=== PATIENT | female | born 1965 | race Caucasian/White ===

== ENCOUNTER → 2023-11-15 08:59 | Outpatient (REF) | payer OTHER, SELFPAY | LOC: HWRAD 08:59 | PROVIDERS: ATTENDING PHYSICIAN Internal Medicine Gastroenterology; FAMILY PHYSICIAN Internal Medicine | DX: K59.09 Other constipation (principal) | CPT/HCPCS: 76700 ==

== ENCOUNTER → 2024-01-02 11:00 | Outpatient (REF) | payer OTHER, SELFPAY ==
[2024-01-02 12:55] LABS: Blood Urea Nitrogen 14 mg/dl (7-17); Calcium 9.4 mg/dl (8.4-10.2); Carbon Dioxide 24 mmol/L (22-30); Chloride 105 mmol/L (98-107); Glucose 88 mg/dl (70-99); Potassium 4.4 mmol/L (3.5-5.1); Sodium 138 mmol/L (135-145); eGFR > 60.00
== END ==
LOC: REG 11:00
PROVIDERS: ATTENDING PHYSICIAN Internal Medicine Gastroenterology
DX: R10.13 Epigastric pain (principal)
CPT/HCPCS: 36415; 80048

== ENCOUNTER → 2024-01-03 07:52 | Outpatient (REF) | payer OTHER, SELFPAY | LOC: RAD 07:52 | PROVIDERS: ATTENDING PHYSICIAN Internal Medicine Gastroenterology | DX: R10.13 Epigastric pain (principal); K86.89 Other specified diseases of pancreas | CPT/HCPCS: 74177; Q9967 ==

== ENCOUNTER → 2024-01-24 10:56 | Outpatient (REF) | payer OTHER, SELFPAY | LOC: RCS 10:56 | PROVIDERS: ATTENDING PHYSICIAN Internal Medicine | DX: R06.02 Shortness of breath (principal); R00.2 Palpitations | CPT/HCPCS: 93225; 93226 ==

== ENCOUNTER → 2024-02-08 14:54 | Outpatient (REF) | payer OTHER, SELFPAY | LOC: WDC 14:54 | PROVIDERS: ATTENDING PHYSICIAN Obstetrics & Gynecology Gynecology; FAMILY PHYSICIAN Internal Medicine | DX: Z12.31 Encounter for screening mammogram for malignant neoplasm of breast (principal) | CPT/HCPCS: 77063; 77067 ==

== ENCOUNTER → 2024-02-11 06:40 | Day surgery (SDC) | payer OTHER, SELFPAY | LOC: GI 06:40 | PROVIDERS: ATTENDING PHYSICIAN Internal Medicine Gastroenterology | DX: R10.11 Right upper quadrant pain (principal); K44.9 Diaphragmatic hernia without obstruction or gangrene; K31.89 Other diseases of stomach and duodenum; K29.50 Unspecified chronic gastritis without bleeding | CPT/HCPCS: 43239; 88305; 88342 ==

== ENCOUNTER → 2024-02-20 12:46 | Outpatient (REF) | payer OTHER, SELFPAY | LOC: HWRAD 12:46 | PROVIDERS: ATTENDING PHYSICIAN Obstetrics & Gynecology Gynecology; FAMILY PHYSICIAN Internal Medicine | DX: R93.89 Abnormal findings on diagnostic imaging of other specified body structures (principal) | CPT/HCPCS: 76830; 76856 ==

== ENCOUNTER → 2024-03-06 07:36 | Outpatient (REF) | payer OTHER, SELFPAY | LOC: RAD 07:36 | PROVIDERS: ATTENDING PHYSICIAN Internal Medicine Gastroenterology; FAMILY PHYSICIAN Internal Medicine | DX: R10.11 Right upper quadrant pain (principal) | CPT/HCPCS: 78226; A9537 ==

== ENCOUNTER → 2024-03-17 14:58 | Outpatient (REF) | payer OTHER, SELFPAY | LOC: RCS 14:58 | PROVIDERS: ATTENDING PHYSICIAN Internal Medicine Cardiovascular Disease; FAMILY PHYSICIAN Internal Medicine | DX: I49.3 Ventricular premature depolarization (principal) | CPT/HCPCS: 93017 ==

== ENCOUNTER → 2024-04-03 13:56 | Outpatient (REF) | payer OTHER, SELFPAY | LOC: HWRCS 13:56 | PROVIDERS: ATTENDING PHYSICIAN Internal Medicine Cardiovascular Disease; FAMILY PHYSICIAN Internal Medicine | DX: I49.3 Ventricular premature depolarization (principal) | CPT/HCPCS: 93306 ==

== ENCOUNTER 2024-10-02 06:05 | Day surgery (SDC) | payer OTHER, SELFPAY ==
[2024-10-02] VITALS (8 sets, daily range): BP systolic 108–145; BP diastolic 56–71; BMI 20.4
[2024-10-02] MEDS: TYLENOL 1000 MG PO (07:15)
[2024-10-02] MEDS: NORMOSOL-R/PLASMALYTE-A 1000 IV (07:16)
--- NOTE | 2024-10-02 07:19 | W.SUR.PREOP ---
Pre-Operative Surgical Note
-
I have examined this patient prior to the performance of the scheduled procedure.
The patient's condition is unchanged from the time of the current History and
Physical and the patient is able to undergo the scheduled procedure.
--- NOTE | 2024-10-02 07:19 | HP.FOC2 ---
Focused History & Physical
Chief Complaint
HPI:
Chief Complaint:
Right upper quadrant pain
HPI / Indication for Planned Procedure:
This is a 58-year-old female who had the pleasure of seeing in the office for right upper quadrant pain that radiates to her back CT scan imaging demonstrated stone in the neck of the gallbladder. Interestingly her pain actually improved with meals
and has continued to do so but her pain has been unrelenting and having exhausted all the resources we are moving forward with laparoscopic cholecystectomy.
Relevant Past Medical History: Negative
Relevant Social History: Negative
Relevant Family History: Negative
Relevant Past Surgical History: Negative
Review of Systems
Review of Pertinent Systems: All Systems Negative
Medication
See Medication form for detailed medications: Yes
Medication List (including Herbals & OTC):
Berberine Capsule 1 cap PO DAILY 09/24/24
Magnesium Complex 1 cap PO TID 09/24/24
Lyme 3 1 cap PO BID 09/24/24
Sbo Probiotic 2 cap PO DAILY 09/24/24
Vitamin D3 250 mcg PO DAILY 09/24/24
cyanocobalamin (vitamin B-12) 5,000 mcg sublingual tablet (Vitamin B-12) 5,000 mcg sublingual DAILY 09/24/24
cyclosporine 0.09 % eye drops in a dropperette (Cequa) 1 drp ophthalmic (eye) Q12H 09/24/24
digestive enzymes 1 cap PO .TID WITH MEALS 09/24/24
levothyroxine 50 mcg tablet (Synthroid) 150 mcg PO DAILY 09/24/24
liothyronine 5 mcg tablet 5 mcg PO DAILY 09/24/24
metoprolol succinate 25 mg tablet,extended release 24 hr 25 mg PO QPM 09/24/24
minoxidil 2.5 mg tablet 2.5 mg PO DAILY 09/24/24
multivitamin 1 tab PO DAILY 09/24/24
naltrexone 4.5 mg capsule 4.5 mg PO DAILY 09/24/24
progesterone 200 mg PO HS 09/24/24
vitamin D3-vitamin K2 1 cap PO DAILY 09/24/24
vitamin E 1 cap PO DAILY 09/24/24
Bioidentical Hormone Replaceme 1 unit SC Q6M 09/25/24
selenium 2 tab PO DAILY 09/25/24
Medications Reviewed: Yes
Allergies and Reactions
Patient has Allergies: No
Noted Allergies and Reactions:
Allergy/AdvReac Type Severity Reaction Status Date / Time
red dye Allergy palpatation Verified 10/02/24 06:52
s
epinephrine AdvReac tachycardia Verified 10/02/24 06:52
and anxiety
Pertinent Physical Exam
All Other Systems: Negative
Head/Neck: Normal
Diagnosis / Assessment
This is a 59-year-old female with now near constant right upper quadrant pain and stone in the neck of the gallbladder concerning for biliary colic versus chronic cholecystitis
Plan / Procedure
Laparoscopic cholecystectomy with cholangiogram
Anesthesia/Sedation to be done by Anesthesia Provider: Yes
--- NOTE | 2024-10-02 08:56 | W.IMMPOSTOP ---
Surgical Immed Post Op Note
-
Primary Surgeon: Mannie Randhawa MD
Assisting Surgeon: None
Pre-op Diagnosis: Biliary colic
Post-op Diagnosis: Same
Procedure Performed: Laparoscopic cholecystectomy with cholangiogram
Anesthesia Type: General
Specimen / Cultures: Gallbladder and contents
Estimated Blood Loss: 3 cc
Complications: None
Operative Findings: Due to her prior umbilical hernia repair which was unclear if it was done with mesh or not did an off midline 5 mm Optiview entry after a left upper quadrant Veress. Fairly normal-appearing gallbladder though somewhat distended.
Critical view of safety obtained prior to a cholangiogram which demonstrated no distal filling defects, and normal biliary anatomy.
--- NOTE | 2024-10-02 08:58 | OR.RPT ---
Operative Report
Operative Report
Patient Name: Marisol Lee
: 1965
Date of Operation: 10/02/2024
Preoperative Diagnosis: Symptomatic Cholelithiasis
Postoperative Diagnosis: Same
Procedure(s):
Laparoscopic Cholecystectomy with Cholangiogram
Surgeon(s):
Dr. Randhawa
Physically Impaired Teacher(s):
CHASE Arreola
Anesthesia: General
Estimated Blood Loss: 3 cc
Urine Output: None
Drains/Lines/Implants: None
Specimens:
1. Gallbladder and contents
HPI/Surgical Indications:
This is a 59year old female who presents with abdominal pain. Exam, labs and imaging are consistent with symptomatic cholelithiasis. Risks/Benefits/Alternatives were discussed at length, and the patient agreed to proceed with surgery.
Operative Findings: Due to her prior umbilical hernia repair which was unclear if it was done with mesh or not did an off midline 5 mm Optiview entry after a left upper quadrant Veress. Fairly normal-appearing gallbladder though somewhat distended.
Critical view of safety obtained prior to a cholangiogram which demonstrated no distal filling defects, and normal biliary anatomy.
Procedure Description:
The patient was brought to the Operating Room and placed in the supine position. IV antibiotics were infused and sequential compression devices were confirmed to be on. Following uneventful induction of general endotracheal anesthesia, an
orogastric tube was placed. The abdomen was prepped and draped in the usual sterile fashion. The abdomen was entered using a left subcostal Veress technique which required a single pass followed by a 5 mm Optiview trocar to avoid her
infraumbilical incision/history of umbilical hernia repair. Pneumoperitoneum to 15 mmHg pressure was obtained without difficulty and we confirmed that no injury had occurred during our entry. The patient was positioned in reverse trendelenberg and
rotated with the right side up slightly. 2 5mm trocars were then placed along the right subcostal margin, followed by a 12 mm port in the epigastrium. A locking grasping forceps was placed on the fundus of the gallbladder where it was then
retracted cephalad and to the right. The gallbladder overall appeared fairly normal though somewhat distended. Using appropriate grasping instruments, the peritoneum overlying the triangle of Calot was incised. The cystic duct/gallbladder
junction was identified, dissected circumferentially. The cystic artery was identified medially and was dissected circumferentially. A critical view was obtained. A clip was then placed on the cystic duct/gallbladder junction and an
intraoperative cholangiogram performed using fluoroscopy, which showed good flow of dye into the duodenum. There were no intra- or extrahepatic bile duct filling defects. The biliary anatomy appeared normal. Following completion of the
cholangiogram, the catheter was removed. Two clips were then placed proximally on the cystic duct and the duct divided. Two clips were placed proximally and one distally on the cystic artery, and the artery was divided. Remaining soft tissue
attachments of the gallbladder to the liver bed were then divided using electrocautery. There was no spillage of bile or stones. The gallbladder bed was inspected and excellent hemostasis was obtained. The gallbladder was extracted through the 12
mm trocar site using an endocatch bag. The abdomen was again irrigated and excellent hemostasis was assured. We did inspect the umbilical site and which did not appear to have intra-abdominal mesh. All remaining trocars were then removed and the
pneumoperitoneum was evacuated. The 12 mm trocar site was closed using a figure of 8 of 0 PDS. All trocar sites were closed at the skin level using 4-0 Monocryl followed by Dermabond. Overall, the patient tolerated the procedure well and was
taken to the Recovery Room postoperatively in stable condition.
I was the attending physician and performed the procedure with assistance of the PA above. The assistance of CHASE Arreola was required due to the complexity of the procedure. During the procedure Marisol assisted with retraction, resection, and
closure of the wound. I was present for all portions of the case, excluding skin closure.
Mannie Randhawa MD
== END 2024-10-02 10:42 | disposition home or self-care (01) ==
LOC: SDS 06:05
PROVIDERS: ATTENDING PHYSICIAN Surgery
DX: K80.10 Calculus of gallbladder with chronic cholecystitis without obstruction (principal)
CPT/HCPCS: 47563; 88304; 74300; 76000; A4300

== ENCOUNTER 2024-12-05 06:23 | Day surgery (SDC) | payer OTHER, SELFPAY | END 2024-12-05 13:17 | disposition home or self-care (01) | LOC: GI 06:23 | PROVIDERS: ATTENDING PHYSICIAN Internal Medicine Gastroenterology | DX: Z12.11 Encounter for screening for malignant neoplasm of colon (principal); K62.1 Rectal polyp; K64.8 Other hemorrhoids; Z86.0101 Personal history of adenomatous and serrated colon polyps; Z80.0 Family history of malignant neoplasm of digestive organs | CPT/HCPCS: 45380; 88305 ==

== ENCOUNTER → 2025-02-09 16:10 | Outpatient (REF) | payer OTHER, SELFPAY | LOC: WDC 16:10 | PROVIDERS: ATTENDING PHYSICIAN Obstetrics & Gynecology Gynecology; FAMILY PHYSICIAN Obstetrics & Gynecology | DX: Z12.31 Encounter for screening mammogram for malignant neoplasm of breast (principal) | CPT/HCPCS: 77063; 77067 ==